=== PATIENT | male | born 1940 | race Caucasian/White ===

== ENCOUNTER 2021-12-01 17:41 | Inpatient (IN) | payer OTHER ==
[~2021-12-01] VITALS: Ht 177.8 cm; Wt 91.1 kg
[2021-12-01] MEDS ORDERED: ATOR20 PO (18:23)
[2021-12-01] MEDS ORDERED: Aspirin325 MG PO (18:23)
[2021-12-01 18:49] LABS: BASOPHILS ABSOLUTE AUTO 0.03 K/mm3 (0.00-0.23); BASOPHILS PERCENT AUTO 0 % (0-2); EOSINOPHILS PERCENT AUTO 0 % (0-6); Hemoglobin 14.3 g/dL (13.5-17.5); IMMATURE GRAN PERCENT AUTO 1 % (0-1); LYMPHOCYTES ABSOLUTE AUTO 0.65 K/mm3 (0.84-5.20); LYMPHOCYTES PERCENT AUTO 3 % (21-46); MONOCYTES ABSOLUTE AUTO 1.91 K/mm3 (0.16-1.47); MONOCYTES PERCENT AUTO 10 % (4-13); Mean Corpuscular HGB 31.1 pg (26.0-34.0); Mean Corpuscular HGB Conc 33.3 g/dL (31.5-36.5); Mean Corpuscular Volume 94 fL (80-100); NEUTROPHILS ABSOLUTE AUTO 16.84 K/mm3 (1.96-9.15); NEUTROPHILS PERCENT AUTO 86 % (41-73); Platelet Count 409 K/mm3 (150-400); RDW Coefficient Variation 13.1 % (11.7-14.2); RDW Standard Deviation 44.9 fL (35.1-46.3); White Blood Cell Count 19.63 K/mm3 (4.00-11.30)
[2021-12-01 19:04] LABS: Albumin, Blood 3.1 g/dL (3.4-5.0); Albumin/Globulin Ratio 0.6 (0.8-1.8); Bilirubin, Total 1.1 mg/dL (0.1-1.0); Bun/Creatinine Ratio 23.3 (12.0-20.0); Calcium, Blood 8.9 mg/dL (8.5-10.1); Creatinine, Blood 1.46 mg/dL (0.60-1.20); Globulin, Blood 5.2 g/dL (2.2-4.0); Potassium, Blood 4.1 mmol/L (3.5-5.5); Total Protein, Blood 8.3 g/dL (6.4-8.2)
[2021-12-01 19:05] LABS: Influenza A, PCR NEGATIVE (NEGATIVE); Influenza B, PCR NEGATIVE (NEGATIVE); Resp Syncytial Virus, PCR NEGATIVE (NEGATIVE)
[2021-12-01 19:16] LABS: SARS-Cov-2 (COVID-19) PCR, MMC POSITIVE (NEGATIVE)
[2021-12-01] MEDS ORDERED: C COMPLEX1000 M1 PO (21:44)
--- NOTE | 2021-12-02 02:00 | NUR ---
TALKED TO PT'S WILMAR. WILMAR GRISSOM THAT SHE HAS NOTICED PT'S MENTAL STATUS DECLINING. PT IS FULL CAREGIVER TO THAT HAS DEMENTIA AND IS WHEECHAIR BOUND. STS THAT SHE NOTICED HIM STUMBLING AND OFF BALANCE WHEN SHE ARRIVED TO PT'S HOME TO ASSIST HIM WITH MEDICAL NEED AND BROUGHT HIM TO ED. WILMAR GRISSOM SHE IS A AN EXPERIENCED CAREGIVER. PT'S BED ALARM IS ACTIVE TO PREVENT FALL. CALL LIGHT AND URINAL ARE WITHIN REACH.
[2021-12-02 04:06] LABS: BASOPHILS ABSOLUTE AUTO 0.03 K/mm3 (0.00-0.23); BASOPHILS PERCENT AUTO 0 % (0-2); EOSINOPHILS PERCENT AUTO 0 % (0-6); Hematocrit 36.7 % (37.0-53.0); Hemoglobin 12.2 g/dL (13.5-17.5); IMMATURE GRAN ABSOLUTE AUTO 0.16 K/mm3 (0.00-0.10); IMMATURE GRAN PERCENT AUTO 1 % (0-1); LYMPHOCYTES ABSOLUTE AUTO 0.72 K/mm3 (0.84-5.20); LYMPHOCYTES PERCENT AUTO 5 % (21-46); MONOCYTES ABSOLUTE AUTO 1.61 K/mm3 (0.16-1.47); MONOCYTES PERCENT AUTO 11 % (4-13); Mean Corpuscular HGB 31.9 pg (26.0-34.0); Mean Corpuscular HGB Conc 33.2 g/dL (31.5-36.5); Mean Corpuscular Volume 96 fL (80-100); Mean Platelet Volume 10.4 fL (9.1-12.4); NEUTROPHILS ABSOLUTE AUTO 12.76 K/mm3 (1.96-9.15); NEUTROPHILS PERCENT AUTO 84 % (41-73); Platelet Count 294 K/mm3 (150-400); RDW Coefficient Variation 13.1 % (11.7-14.2); RDW Standard Deviation 46.2 fL (35.1-46.3); Red Blood Cell Count 3.82 M/mm3 (4.30-5.90); White Blood Cell Count 15.28 K/mm3 (4.00-11.30)
[2021-12-02 04:29] LABS: Bun/Creatinine Ratio 26.5 (12.0-20.0); Calcium, Blood 8.2 mg/dL (8.5-10.1); Creatinine, Blood 1.32 mg/dL (0.60-1.20); Potassium, Blood 4.4 mmol/L (3.5-5.5)
--- NOTE | 2021-12-02 06:43 | NUR ---
SHIFT SUMMARY PT IS ALERT AND ORIENTED. PT IS [place] AND HEARING AIDS ARE AT BEDSIDE. DENIES CHEST PAIN. REPORTS SOB ON EXERTION. VITAL SIGNS ARE STABLE. PT'S OXYGEN DEMAND HAS INCREASED. PT DESATED INTO LOW 70'S AND MAINTAINED <85%. RT WAS CALLED AND PT IS NOW ON HEATED HI FLOW NC 40L 70 FIO2. 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 BED ALARM IS ACTIVE AND CALL LIGHT IS WITHIN REACH.
--- NOTE | 2021-12-02 07:10 | NUR ---
CALLED DR Donte SCHAFFER TO CHANGE CODE STATUS ON PT. HAD A TALK WITH PT ABOUT HIS CODE STATUS AND WHAT IT MEANT. PT REPORTS THAT HE WOULD LIKE CHEST COMPRESSIONS AND MEDS BUT DOES NOT WANT TO BE INTUBATED.
--- NOTE | 2021-12-02 08:44 | NUR ---
AM NOTED PT DESATURATED DOWN TO 85% ON AIRVO 40L 71% FIO2; PT HAD PULLED NASAL PRONGS OUT OF NOSE AND JUST SITTING ON HIS UPPER LIP. REPLACED IN NOSE, PT RECOVERED SLOWING, CURRENT 90-93% SPO2. TACHYPNIC 24-32 RESP PER MIN, USE OF ABD MUSCLE, IMPROVED WHEN O2 REPLACED. PT ALERT, ORIENTED PERSON, PLACE, EVENT, TIME; UNSURE OF EXACT DATE, STATES IT IS SUPER BOWL THURSDAY, KNOWNS IT IS 2021. REORIENTED EASILY. [place]. PT REPORTS OVERALL ACHE, REPOSITIONED FOR COMFORT, PT IND IN ROOM. PT DENIES NAUSEA CURRENTLY, REPORTS HE BECOMES NAUSIOUS AT BASELINE WITH MEALS. PT DENIES DIZZINESS. TELE SINUS 60-70'S, BP STABLE. ABD SOFT, NONTENDER, HYPOACTIVE BT T/O. PT RECIVING IV STEROIDS. LOW GRADE FEVER 100.3. OTHER VSS. NO OTHER ACUTE CHANGES NOTED. WILL CONTINUE TO MONITOR.
--- NOTE | 2021-12-02 17:00 | NUR ---
SHIFT SUMMARY PT DESATURATED WITH ACTIVITY, RECOVERS, TITRATED AIRVO DOWN TO 40L 65% FIO2, TOLERATING WELL. UP IN CHAIR FOR MAJOIRTY OF SHIFT. NO S/SX OF DISTRESS NOTED. OTHER VSS. NO OTHER ACUTE CHANGES NOTED. WILL CONTINUE TO MONITOR UNITL REPORT GIVEN TO ONCOMING RN.
[2021-12-03 04:11] LABS: BASOPHILS ABSOLUTE AUTO 0.03 K/mm3 (0.00-0.23); BASOPHILS PERCENT AUTO 0 % (0-2); EOSINOPHILS PERCENT AUTO 0 % (0-6); Hematocrit 34.5 % (37.0-53.0); Hemoglobin 11.6 g/dL (13.5-17.5); IMMATURE GRAN ABSOLUTE AUTO 0.38 K/mm3 (0.00-0.10); IMMATURE GRAN PERCENT AUTO 2 % (0-1); LYMPHOCYTES PERCENT AUTO 3 % (21-46); MONOCYTES ABSOLUTE AUTO 1.29 K/mm3 (0.16-1.47); MONOCYTES PERCENT AUTO 6 % (4-13); Mean Corpuscular HGB 31.7 pg (26.0-34.0); Mean Corpuscular HGB Conc 33.6 g/dL (31.5-36.5); Mean Corpuscular Volume 94 fL (80-100); Mean Platelet Volume 9.9 fL (9.1-12.4); NEUTROPHILS ABSOLUTE AUTO 17.75 K/mm3 (1.96-9.15); NEUTROPHILS PERCENT AUTO 89 % (41-73); Platelet Count 373 K/mm3 (150-400); RDW Standard Deviation 44.9 fL (35.1-46.3); Red Blood Cell Count 3.66 M/mm3 (4.30-5.90); White Blood Cell Count 20.05 K/mm3 (4.00-11.30)
[2021-12-03 04:27] LABS: Bun/Creatinine Ratio 32.5 (12.0-20.0); Calcium, Blood 8.4 mg/dL (8.5-10.1); Creatinine, Blood 1.23 mg/dL (0.60-1.20); Potassium, Blood 4.7 mmol/L (3.5-5.5)
--- NOTE | 2021-12-03 06:19 | NUR ---
SHIFT SUMMARY PT IS ALERT AND ORIENTED. VITALS ARE STABLE. THIS MORNING WHEN PT USED URINAL AND SAT AT SIDE OF BED HE DESATED TO THE LOW 80'S THIS NURSE WAS UNABLE TO GET SATS UP DESPITE INCREASING OXYGEN. RT WAS CALLED AND PT IS NOW ON 55L 80% FIO2 WOTH SATS OF 96%. CALL LIGHT IS WITHIN REACH.
--- NOTE | 2021-12-03 09:02 | NUR ---
AM NOTE ASSUMED CARE OF PATIENT AT APPROX 0700. PT SPO2 AT 98-99% ON 54L 77% FIO2 WHILE SLEEPING, RESP RATE 20-22; PT DESATURATED DOWN TO 86-90% WITH ACTIVITY, UNABLE TO TITRATES DOWN AT THIS TIME. PT REPORTS DRY COUGH, REPORTS CHEST PAIN WITH COUGH AT TIMES. PT A&Ox4; CALM AND COOPERATIVE WITH CARE. PT EXPRESSING THE DESIRE TO GO HOME, PT EDCUATED ON O2 NEEDS BEING TO HIGH TO GO HOME AT THIS TIME. PT DENIES PAIN, NASUEA AND DIZZZINESS. TELE SINUS AMY 40-50'S; BP STABLE. ABD SOFT, NONTENDER, LAST BN YESTERDAY; PT REPORTS DIARRHEA, HELD STOOL SOFTNERS THIS AM. NO S/SX OF DISTRESS NOTED. OTHER VSS. NO OTHER ACUTE CHANGES. WILL CONTINE TO MONTIOR.
--- NOTE | 2021-12-03 17:27 | NUR ---
SHIFT SUMMARY PT UP TO BSC AND WHILE TRANSFERING BACK TO BE PT DESATURATED TO 79-86%, TACHPNIC AND LABORED BREATHING NOTED; ON AIRVO 50L AND 71% FIO2, TITRATED UP TO 50L AND 81% FIO2 AND PLACED NONREBREATHER FOR RESCUE, SLOW RECOVERY; PT CURRENTLY SPO2 90-92% WHILE EATING DINNER. MINIMAL URINE OUTPUT NOTED. NO OTHER ACUTE CHANGES NOTED. OTHER VSS. WILL CONTINUE TO MONITOR
--- NOTE | 2021-12-04 05:44 | NUR ---
SHIFT SUMMARY PT ALERT AND ORIENTED. CONFUSED AT TIMES. BED ALARM IN PLACE. HR STABLE. BP STABLE. NO CP OR PRESSURE REPORTED. PT ABLE TO TURN SELF IN BED NEEDED. OXYGEN SATURATION MAINTAINED ABOVE 92% ON AIRVO,SEE EHR FOR SETTINGS. PT USES URINAL AT BEDSIDE. WILL CONT TO MONITOR UNTIL REPORT GIVE TO DAYSHIFT RN.
[2021-12-04 06:19] LABS: BASOPHILS ABSOLUTE AUTO 0.06 K/mm3 (0.00-0.23); BASOPHILS PERCENT AUTO 0 % (0-2); EOSINOPHILS PERCENT AUTO 0 % (0-6); Hematocrit 35.5 % (37.0-53.0); IMMATURE GRAN ABSOLUTE AUTO 0.52 K/mm3 (0.00-0.10); IMMATURE GRAN PERCENT AUTO 3 % (0-1); LYMPHOCYTES ABSOLUTE AUTO 0.67 K/mm3 (0.84-5.20); LYMPHOCYTES PERCENT AUTO 3 % (21-46); MONOCYTES PERCENT AUTO 7 % (4-13); Mean Corpuscular HGB 32.6 pg (26.0-34.0); Mean Corpuscular HGB Conc 33.8 g/dL (31.5-36.5); Mean Corpuscular Volume 97 fL (80-100); Mean Platelet Volume 10.5 fL (9.1-12.4); NEUTROPHILS ABSOLUTE AUTO 17.12 K/mm3 (1.96-9.15); NEUTROPHILS PERCENT AUTO 87 % (41-73); Platelet Count 364 K/mm3 (150-400); RDW Standard Deviation 46.1 fL (35.1-46.3); Red Blood Cell Count 3.68 M/mm3 (4.30-5.90); White Blood Cell Count 19.67 K/mm3 (4.00-11.30)
[2021-12-04 06:45] LABS: Calcium, Blood 8.5 mg/dL (8.5-10.1); Creatinine, Blood 1.19 mg/dL (0.60-1.20); Potassium, Blood 4.8 mmol/L (3.5-5.5)
--- NOTE | 2021-12-04 08:59 | NUR ---
AM NOTE ASSUMED CARE OF PATIENT AT APPROX 0700. PT ALERT, ORIENTED x4; PRAIRIE BAND AND FORGETFUL AT TIMES. PT REPORTS SOB; SPO2 >90% ON 50L 89% FIO2 VIA AIRVO THIS AM; LS DIM T/O, RESP RATE 20-24. PT REPORTS COUGHING UP SPUTUM, MOSTLY CLEAR WITH SLIGHT YELLOW SPUTUM NOTED. TELE SINUS AMY, BP STABLE. BOWEL TO NORMOACTIVE x4 QUAD, SOFT NONTENDER, REFUSING STOOL SOFTENERS AT THIS TIME. NO S/SX OF DISTRESS NOTED. OTHER VSS. NO OTHER ACUTE CHANGES NOTED. WILL CONTINUE TO MONITOR.
--- NOTE | 2021-12-04 15:16 | NUR ---
TRANSFER OF CARE NO S/SX OF DISTRESS NOTED. NO ACUTE CHAGNES NOTED T/O SHIFT. TITRATED AIRVO SETTING TO 50L AND 80% FIO2; SPO2 >90% FOR MAJORITY OF SHIFT. VSS. REPORT GIVEN TO RN ASSUMING CARE OF PATIENT.
--- NOTE | 2021-12-04 18:08 | NUR ---
TRANSFER OF CARE THIS RN CARING FOR PT SINCE APPROX 1500. PT A&O X4. VSS. SPO2 > 90% ON AIRVO @ 50L, FIO2 80%. MONITOR SHOWING SB, HR 40's-50's. NO EVENTS. WILL CONTINUE TO MONITOR & PROVIDE CARE UNTIL REPORT OFF TO MOLD FINISHER RN.
--- NOTE | 2021-12-04 23:11 | NUR ---
UPDATE INFORMED THAT SPUTUM SAMPLE WAS NOT OF ABLE TO BE PROCESSED BY LAB. DISCUSSED WITH RING MAKING MACHINE OPERATOR. NEW ORDER TO BE PLACED.
[2021-12-05 04:16] LABS: BASOPHILS ABSOLUTE AUTO 0.08 K/mm3 (0.00-0.23); BASOPHILS PERCENT AUTO 1 % (0-2); EOSINOPHILS ABSOLUTE AUTO 0.01 K/mm3 (0.00-0.68); EOSINOPHILS PERCENT AUTO 0 % (0-6); Hematocrit 36.5 % (37.0-53.0); Hemoglobin 12.2 g/dL (13.5-17.5); IMMATURE GRAN ABSOLUTE AUTO 0.73 K/mm3 (0.00-0.10); IMMATURE GRAN PERCENT AUTO 4 % (0-1); LYMPHOCYTES ABSOLUTE AUTO 0.71 K/mm3 (0.84-5.20); LYMPHOCYTES PERCENT AUTO 4 % (21-46); MONOCYTES ABSOLUTE AUTO 1.15 K/mm3 (0.16-1.47); MONOCYTES PERCENT AUTO 7 % (4-13); Mean Corpuscular HGB 32.6 pg (26.0-34.0); Mean Corpuscular HGB Conc 33.4 g/dL (31.5-36.5); Mean Corpuscular Volume 98 fL (80-100); Mean Platelet Volume 10.6 fL (9.1-12.4); NEUTROPHILS ABSOLUTE AUTO 14.38 K/mm3 (1.96-9.15); NEUTROPHILS PERCENT AUTO 84 % (41-73); Platelet Count 389 K/mm3 (150-400); RDW Coefficient Variation 12.9 % (11.7-14.2); RDW Standard Deviation 45.2 fL (35.1-46.3); Red Blood Cell Count 3.74 M/mm3 (4.30-5.90); White Blood Cell Count 17.06 K/mm3 (4.00-11.30)
--- NOTE | 2021-12-05 05:30 | NUR ---
SHIFT SUMMARY PT ALERT AND ORIENTED. SLEPT T/O SHIFT. HR STABLE. BP STABLE. NO CP OR PRESSURE. BED ALARM IN PLACE FOR OCCASIONAL FORGETFULNESS. PT ABLE TO TURN SELF IN BED NEEDED. OXYGEN SATURATION MAINTAINED ABOVE 92% ON AIRVO AT 50L AND 80% FIO2. PT ENCOURAGED TO PRONE. WILL CONT TO MONITOR UNTIL REPORT GIVEN TO DAYSHIFT RN.
--- NOTE | 2021-12-05 18:35 | NUR ---
Pt remains A&O x4. No c/o pain. Afebrile. AUO. No BM. Tolerating current diet. Unable to wean supplemental O2- continues to desat with movement, Tessalon pearls PRN significantly helped with cough suppression. Frequent rounds to ensure pt safety. Pt encouraged to reposition q2hrs and pressure points offloaded to prevent pressure ulcers, pt verbalized understanding. Pt in no apparent distress at this time. Will continue to monitor until transfer of care to oncoming RN.
[2021-12-06 04:03] LABS: Hematocrit 38.6 % (37.0-53.0); Hemoglobin 12.8 g/dL (13.5-17.5); Mean Corpuscular HGB Conc 33.2 g/dL (31.5-36.5); Mean Corpuscular Volume 97 fL (80-100); Mean Platelet Volume 9.8 fL (9.1-12.4); Platelet Count 447 K/mm3 (150-400); RDW Coefficient Variation 12.6 % (11.7-14.2); RDW Standard Deviation 43.9 fL (35.1-46.3); White Blood Cell Count 15.03 K/mm3 (4.00-11.30)
[2021-12-06 04:18] LABS: Bun/Creatinine Ratio 28.2 (12.0-20.0); Calcium, Blood 8.4 mg/dL (8.5-10.1); Creatinine, Blood 1.17 mg/dL (0.60-1.20); Potassium, Blood 4.3 mmol/L (3.5-5.5)
--- NOTE | 2021-12-06 05:12 | NUR ---
UPDATE PT GAVE VERBAL OK TO SPEAK WITH SISTER MIMI. MIMI UPDATED ON PT CONDITION. MIMI STATED PT'S IS NOT DOING WELL AND IS AT END OF LIFE. PT MAY NEED CITY ROUTE DRIVER ASSISTANCE, WILL INFORM DAYSHIFT RN. LE TO CALL THIS AFTERNOON WITH UPDATE ON PT'S .
[2021-12-06 05:37] LABS: BAND PERCENT MAN 3 % (0-8); BASOPHILS PERCENT MAN 0 % (0-2); EOSINOPHILS ABSOLUTE MAN 0.15 K/mm3 (0.00-0.68); EOSINOPHILS PERCENT MAN 1 % (0-6); LYMPHOCYTES ABSOLUTE MAN 1.05 K/mm3 (0.84-5.20); LYMPHOCYTES PERCENT MAN 7 % (21-46); MONOCYTES ABSOLUTE MAN 0.75 K/mm3 (0.16-1.47); MONOCYTES PERCENT MAN 5 % (4-13); NEUTROPHILS ABSOLUTE MAN 13.07 K/mm3 (1.96-9.15); SEG NEUTROPHILS PERCENT MAN 84 % (41-73); TOTAL CELLS COUNTED 100
--- NOTE | 2021-12-06 05:45 | NUR ---
ASSESSMENT COMPLETED, VITAL SIGNS STABLE. PT AWAKE , ALERT AND ORIENTED X4. PT DENIES PAIN.AT THE BEGININGB OF THE SHIFT PT 40L OXYGEN 80% FIO2 , RT ATTEMPTED TITRATING O2 DOWN PT HAD A COUGHING FIT AND DESATS TO 80"S , PT CURRENTLY ON 60L 90%FIO2 SPO2 97%. DISCUSSED PLAN OF CARE WITH PATIENT, GOAL IS TITRATED OXYGEN TOLERATED. PATIENT VERBALIZED UNDERSTANDING . CALL LIGHT WITHIN REACH AND SIDE RAIL UP X2.
--- NOTE | 2021-12-06 11:08 | NUR ---
Update: Run of [facility], pt asymptomatic. MD notified via voicemail.
[2021-12-06 12:45] LABS: PCO2 Arterial 35.5 mmHg (35-45); PO2 Arterial 98.5 mmHg (80-100); pH Blood Arterial 7.46 (7.35-7.45)
[2021-12-07 03:43] LABS: Hematocrit 36.8 % (37.0-53.0); Hemoglobin 12.2 g/dL (13.5-17.5); Mean Corpuscular HGB 31.9 pg (26.0-34.0); Mean Corpuscular HGB Conc 33.2 g/dL (31.5-36.5); Mean Corpuscular Volume 96 fL (80-100); Mean Platelet Volume 10.3 fL (9.1-12.4); Platelet Count 403 K/mm3 (150-400); RDW Coefficient Variation 12.6 % (11.7-14.2); RDW Standard Deviation 43.9 fL (35.1-46.3); Red Blood Cell Count 3.82 M/mm3 (4.30-5.90); White Blood Cell Count 16.94 K/mm3 (4.00-11.30)
[2021-12-07 04:03] LABS: Anion Gap 4 mmol/L (6-16); Blood Urea Nitrogen 32 mg/dL (8-24); Bun/Creatinine Ratio 29.4 (12.0-20.0); CO2, Blood 24 mmol/L (21-32); Calcium, Blood 8.3 mg/dL (8.5-10.1); Chloride, Blood 112 mmol/L (98-108); Creatinine, Blood 1.09 mg/dL (0.60-1.20); Glomerular Filtration Rate >60 (60-); Glucose, Blood 131 mg/dL (70-99); Potassium, Blood 4.5 mmol/L (3.5-5.5); Sodium, Blood 140 mmol/L (136-145)
[2021-12-07 04:07] LABS: BAND PERCENT MAN 2 % (0-8); BASOPHILS PERCENT MAN 0 % (0-2); EOSINOPHILS ABSOLUTE MAN 0.16 K/mm3 (0.00-0.68); EOSINOPHILS PERCENT MAN 1 % (0-6); LYMPHOCYTES ABSOLUTE MAN 0.84 K/mm3 (0.84-5.20); LYMPHOCYTES PERCENT MAN 5 % (21-46); METAMYELOCYTE ABSOLUTE MAN 0.67 K/mm3 (0.00-0.00); METAMYELOCYTE PERCENT MAN 4 % (0-0); MONOCYTES ABSOLUTE MAN 1.01 K/mm3 (0.16-1.47); MONOCYTES PERCENT MAN 6 % (4-13); MYELOCYTE PERCENT MAN 3 % (0-0); NEUTROPHILS ABSOLUTE MAN 13.72 K/mm3 (1.96-9.15); SEG NEUTROPHILS PERCENT MAN 79 % (41-73); TOTAL CELLS COUNTED 100
--- NOTE | 2021-12-07 05:33 | NUR ---
CEMENT STORAGE WORKER SUMMARY NOTE ALERT AND ORIENTEED X4 , VSS, PT CURRENTLY ON 40L 60% FIO2 SATS 94%, THIS NURSE DISCUSSED PLAN OF CARE WITH PATIENT WILL WEAN SUPPLEMENTAL O2 TOLERATED , PT VERBALIZED UNDERSTANDING. PT DENIES PAIN AT THIS TIME. CALL LIGHT WITHIN REACH AND SIDE RAIL UP X3.
--- NOTE | 2021-12-07 18:29 | NUR ---
VSS. No c/o pain. Afebrile. AUO. No BM- refusing bowel regimen meds despite education. Tolerating current diet. Weaned HFNC settings down. Encouraged pt to prone, per pt "I will try to when I go to sleep tonight." Sister updated regarding POC. Frequent rounds to ensure pt safety. Pt encouraged to reposition q2hrs and offloade pressure points to prevent pressure ulcers, pt verbalized understanding. Pt in no apparent distress at this time. Will continue to monitor until transfer of care to oncoming RN.
[2021-12-08 03:31] LABS: Hematocrit 37.1 % (37.0-53.0); Hemoglobin 12.2 g/dL (13.5-17.5); Mean Corpuscular HGB 31.2 pg (26.0-34.0); Mean Corpuscular HGB Conc 32.9 g/dL (31.5-36.5); Mean Corpuscular Volume 95 fL (80-100); Mean Platelet Volume 10.1 fL (9.1-12.4); Platelet Count 446 K/mm3 (150-400); RDW Coefficient Variation 12.5 % (11.7-14.2); RDW Standard Deviation 43.5 fL (35.1-46.3); Red Blood Cell Count 3.91 M/mm3 (4.30-5.90); White Blood Cell Count 21.11 K/mm3 (4.00-11.30)
[2021-12-08 03:46] LABS: Anion Gap 6 mmol/L (6-16); Blood Urea Nitrogen 31 mg/dL (8-24); Bun/Creatinine Ratio 29.2 (12.0-20.0); CO2, Blood 24 mmol/L (21-32); Calcium, Blood 8.6 mg/dL (8.5-10.1); Chloride, Blood 112 mmol/L (98-108); Creatinine, Blood 1.06 mg/dL (0.60-1.20); Glomerular Filtration Rate >60 (60-); Glucose, Blood 135 mg/dL (70-99); Potassium, Blood 4.7 mmol/L (3.5-5.5); Sodium, Blood 142 mmol/L (136-145)
[2021-12-08 03:59] LABS: BAND PERCENT MAN 5 % (0-8); BASOPHILS PERCENT MAN 0 % (0-2); EOSINOPHILS ABSOLUTE MAN 0.21 K/mm3 (0.00-0.68); EOSINOPHILS PERCENT MAN 1 % (0-6); LYMPHOCYTES ABSOLUTE MAN 0.84 K/mm3 (0.84-5.20); LYMPHOCYTES PERCENT MAN 4 % (21-46); METAMYELOCYTE ABSOLUTE MAN 0.21 K/mm3 (0.00-0.00); METAMYELOCYTE PERCENT MAN 1 % (0-0); MONOCYTES ABSOLUTE MAN 0.84 K/mm3 (0.16-1.47); MONOCYTES PERCENT MAN 4 % (4-13); MYELOCYTE ABSOLUTE MAN 0.42 K/mm3 (0.00-0.00); MYELOCYTE PERCENT MAN 2 % (0-0); NEUTROPHILS ABSOLUTE MAN 18.57 K/mm3 (1.96-9.15); SEG NEUTROPHILS PERCENT MAN 83 % (41-73); TOTAL CELLS COUNTED 100
--- NOTE | 2021-12-08 06:26 | NUR ---
ALERT AND ORIENTED X4. OVERNIGHT PT DESATs 80"s ON AIRVO DUE TO COUGHING FIT, OXYGEN INCREASED FROM 35L TO 50L 85% Fio2 SPO2 90"S , RT NOTIFIED. RT LATER ON WEAN O2 DOWN TO 35L54% Fio2 tolerating well. PLAN OF CARE DISCUSSED WITH PATIENT , PT VERBALIZED UNDERSTANDING. CALL LIGHT WITHIN REACH , SIDE RAIL UP X2.
--- NOTE | 2021-12-08 16:43 | NUR ---
SHIFT SUMMARY NO S/SX OF DISTRESS NOTED. PT CONTINUES ON AIRVO TITRATED DOWN TO 35L 51% FIO2. PT ABLE TO BOOST SELF IN BED. OTHER VSS. NO OTHER ACUTE CHANGES NOTED. WILL CONTINUE TO MONITOR UNITL REPORT GIVEN TO ONCOMING RN.
--- NOTE | 2021-12-08 22:29 | NUR ---
CARE ASSUMPTION PT IS AXO X4 AND COMMUNICATING APPROPRIATLEY. O2 SATS >90% ON 35L W 40% FIO2. PT DENYING ANY PAIN OR NAUSEA AT THIS TIME. VSS AND AFEBRILE. PT DENYING ANY FURTHER NEEDS AT THIS TIME.
[2021-12-09 04:09] LABS: Hematocrit 37.8 % (37.0-53.0); Hemoglobin 12.7 g/dL (13.5-17.5); Mean Corpuscular HGB 31.8 pg (26.0-34.0); Mean Corpuscular HGB Conc 33.6 g/dL (31.5-36.5); Mean Corpuscular Volume 95 fL (80-100); Mean Platelet Volume 10.5 fL (9.1-12.4); Platelet Count 486 K/mm3 (150-400); RDW Coefficient Variation 12.4 % (11.7-14.2); Red Blood Cell Count 3.99 M/mm3 (4.30-5.90); White Blood Cell Count 18.27 K/mm3 (4.00-11.30)
[2021-12-09 04:45] LABS: BAND PERCENT MAN 3 % (0-8); BASOPHILS PERCENT MAN 0 % (0-2); EOSINOPHILS PERCENT MAN 0 % (0-6); LYMPHOCYTES ABSOLUTE MAN 1.46 K/mm3 (0.84-5.20); LYMPHOCYTES PERCENT MAN 8 % (21-46); MONOCYTES ABSOLUTE MAN 0.73 K/mm3 (0.16-1.47); MONOCYTES PERCENT MAN 4 % (4-13); MYELOCYTE ABSOLUTE MAN 0.18 K/mm3 (0.00-0.00); MYELOCYTE PERCENT MAN 1 % (0-0); NEUTROPHILS ABSOLUTE MAN 15.89 K/mm3 (1.96-9.15); SEG NEUTROPHILS PERCENT MAN 84 % (41-73); TOTAL CELLS COUNTED 100
--- NOTE | 2021-12-09 06:43 | NUR ---
SINGLE STAYER OPERATOR SUMMARY PT IS AXO X4 AND COMMUNICATES APPROPRIATLEY. NO MAJOR CHANGES THIS SHIFT THE PT SLEPT COMFORTABLY FOR MOST OF THE NIGHT. O2 SATS >90% ON AIRVO 35L W 40% FIO2. VSS AND AFEBRILE. PT DID HAVE ONE EPISODE OF A 43 BEAT RUN OF IDIOVENTRICULAR RYTHYM WHILE ASLEEP. WILL REPORT TO ONCOMING RN.
--- NOTE | 2021-12-09 08:27 | NUR ---
ASSUMED CARE OF PATIENT AT APPROX 0700. PT RESTING IN BED. MOVES IND IN BED. PT REPORTS SOB, SPO2 >90% THIS AM ON 31L 35% FIO2; LS DIMINISHED T/O, PT REPROTS CHEST PAIN WITH COUGH, DENIES SPUTUM PRODUCTION. RESP RATE 20-26. PT DENIES PAIN, NAUSEA, DIZZINESS AND LIGHTHEADEDNESS. PT TELE SINUSBRADY 50S, BP STABLE. BT ACTIVE T/O, SOFT NONTENDER, PT REPORTS DIARRHEA, REFUSING STOOL SOFTENERS. BRUISING NOTED ALONG LOWER ABD. OTHER VSS. NO S/SX OF DISTRESS NOTED. NO OTHER ACUTE CHAGNES. WILL CONTINUE TO MONITOR.
--- NOTE | 2021-12-09 14:33 | NUR ---
Case conference with propellant charge loader and bedside RN on current status and concerns. Will await further update this afternoon from RN before making contact per her request. Pt's at home on hospice currently. Pt's O2 and resp support needs currently too great for him to return home to be with her. Customer Services Manager updated also.
--- NOTE | 2021-12-09 16:42 | NUR ---
Spiritual care visit conducted. Patient is lying in bed and alert. 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 Patient talks about the things that inspire him, the granddaughter that he trusts and the need to be well quickly. Pt is tearful at times and is very honest. Therapeutic alliance is easily established. I listen empathically, and provide gentle savings counselor, and prayer. Patient responds well, shows signs of reduced stress and asks if I could return next day to visit. I will continue to help pt deal with the load and stress.
--- NOTE | 2021-12-09 17:58 | NUR ---
SHIFT SUMMARY NO S/SX OF DISTRESS NOTED T/O SHIFT. TITRATED PT FROM AIRVO TO 4L O2 VIA NC T/O SHIFT. OTHER VSS. NO OTHER ACUTE CHANGES NOTED. WILL CONTINUE TO MONITOR UNITL REPORT GIVEN TO ONCOMING RN.
--- NOTE | 2021-12-09 21:39 | NUR ---
CARE ASSUMPTION PT IS AXO X4 AND COMMUNICATING APPROPRIATELY. O2 SATS >90% ON 3L NC. VSS AND AFEBRILE. PT DENYING ANY PAIN OR NAUSEA AT THIS TIME. PT RESTING IN BED DENYING ANY FURTHER NEEDS AT THIS TIME.
[2021-12-10 04:01] LABS: Hemoglobin 13.2 g/dL (13.5-17.5); Mean Corpuscular HGB 31.7 pg (26.0-34.0); Mean Corpuscular HGB Conc 33.8 g/dL (31.5-36.5); Mean Corpuscular Volume 94 fL (80-100); Mean Platelet Volume 10.3 fL (9.1-12.4); Platelet Count 500 K/mm3 (150-400); RDW Coefficient Variation 12.2 % (11.7-14.2); RDW Standard Deviation 42.6 fL (35.1-46.3); Red Blood Cell Count 4.16 M/mm3 (4.30-5.90); White Blood Cell Count 15.32 K/mm3 (4.00-11.30)
[2021-12-10 04:26] LABS: Anion Gap 5 mmol/L (6-16); Blood Urea Nitrogen 31 mg/dL (8-24); Bun/Creatinine Ratio 28.7 (12.0-20.0); CO2, Blood 27 mmol/L (21-32); Calcium, Blood 8.4 mg/dL (8.5-10.1); Chloride, Blood 107 mmol/L (98-108); Creatinine, Blood 1.08 mg/dL (0.60-1.20); Glomerular Filtration Rate >60 (60-); Glucose, Blood 106 mg/dL (70-99); Potassium, Blood 4.5 mmol/L (3.5-5.5); Sodium, Blood 139 mmol/L (136-145)
[2021-12-10 04:36] LABS: BASOPHILS PERCENT MAN 0 % (0-2); EOSINOPHILS ABSOLUTE MAN 0.15 K/mm3 (0.00-0.68); EOSINOPHILS PERCENT MAN 1 % (0-6); LYMPHOCYTES ABSOLUTE MAN 0.91 K/mm3 (0.84-5.20); LYMPHOCYTES PERCENT MAN 6 % (21-46); METAMYELOCYTE PERCENT MAN 2 % (0-0); MONOCYTES ABSOLUTE MAN 1.22 K/mm3 (0.16-1.47); MONOCYTES PERCENT MAN 8 % (4-13); MYELOCYTE ABSOLUTE MAN 0.45 K/mm3 (0.00-0.00); MYELOCYTE PERCENT MAN 3 % (0-0); NEUTROPHILS ABSOLUTE MAN 12.25 K/mm3 (1.96-9.15); SEG NEUTROPHILS PERCENT MAN 80 % (41-73); TOTAL CELLS COUNTED 100
--- NOTE | 2021-12-10 04:59 | NUR ---
OTR REFRIGERATED CDL TRUCK DRIVER SUMMARY PT IS AXO X4 AND COMMUNICATES APPROPRIATELY. NO MAJOR EVENTS THIS SHIFT THE PT RESTED COMFORTABLY FOR MOST OF THE SHIFT. O2 SATS >90% ON 1-2L NC EXCEPT FOR A COUPLE OF COUGHING FITS THAT CAUSED HIS O2 TO DROP TO 83% WHICH SLOWLY RECOVERED W NO ADDITIONAL O2. VSS AND AFEBRILE. WILL REPORT TO ONCOMING RN.
--- NOTE | 2021-12-10 09:55 | NUR ---
ASSUMED CARE OF PATIENT AT APPROX 0700. PT ON 2L O2 VIA NC, PT HAD COUGHING EPISODE THIS AM AND TITRATED TO 5L O2 VIA NC, SPO2 89-92%; LUNG SOUNDS DIM T/O. NONPRODUCTIVE COUGH NOTED. RT AT BEDSIDE TO COMPLETE HOME O2 EVAL. PT A&Ox4; CALM AND COOPERATIVE WITH CARE. PT DENIES CHEST PAIN, PAIN, NAUSEA, DIZZINESS AND NUMB/TINGLING. TELE SINUS 50-60'S; BP SOFT, BUT STABLE. BT HYPOACTIVE, REPORTS PASSING GAS AND DIARRHEA, SOFT, NONTENDER. PT RECEIVING IV STEROIDS. VSS. NO OTHER ACUTE CHANGES NOTED. WILL CONTINUE TO MONITOR.
--- NOTE | 2021-12-10 11:32 | NUR ---
Case conference with [facility] Care Tugger Operator visiting pt and pt's RN this am. Pt's O2 needs have decreased and he is on nasal canula. He is still desaturating significantly with coughing spells and required 16 L to recover per RN. When I stopped by to visit, RT working with pt on Home O2 eval. Will try again later. Primary goal is for pt to improve enough that safe home going possible so that he can spend as much time as possible with his , who is on hospice at home.
[2021-12-10] MEDS ORDERED: BENZ100A PO (14:17)
[2021-12-10] MEDS ORDERED: DECADRON6 M1 PO (14:18)
[2021-12-10] MEDS ORDERED: OMEP20ER PO (14:18)
--- NOTE | 2021-12-10 19:14 | NUR ---
DISCHARGE SUMMARY PT AND FAMILY ARE ADAMANT ABOUT PT BEING DISCHARGED TODAY. PT ON 4L 02 VIA NC AT REST, SPO2 >90%, TIRATED TO 10-15 WITH ACTIVTY, THIS AFTERNOON SPO2 >88% WITH ACTIVITY. NO S/SX OF DISTRESS NOTED. NO OTHER ACUTE CHANGES. EDUCATED PT AND GRANDDAUGHTER ON DISCHARGE INSTRUCTIONS, FOLLOW UP APPOINTMENT AND MEDICATIONS. EDUCATED PT AND GRANDDAUGHTER WILMAR ON HOME O2 USE AND TITRATING THE OXYGEN FOR ACTIVITY. EDUCATED PT AND GRANDDAUGHTER ON SMALL AMOUNTS OF ACTIVITY AT A TIME, ALLOWING TIME TO RECOVER IN BETWEEN ACTIVITY. EDCUATED PT/GRANDDAUGHTER IF THE PT IS HAVING WORSENING SYMPTOMS, REOCCURING OR NEW SYMPTOMS TO COME BACK TO BE EVALUATED. PT LEFT ROOM VIA WHEEL CHAIR AT APPROX 1905.
== END 2021-12-10 18:56 | disposition home or self-care (01) | DRG 871 ==
LOC: ER 17:41 → ERHOLD 20:14 → PCU 20:14
PROVIDERS: Family Medicine; Physician Assistant; Student in an Organized Health Care Education/Training Program; ADMIT Hospitalist
PROC: 8E0ZXY6 Isolation (ICD-10-PCS; principal; 2021-12-01)
PROC: 3E0333Z Introduction of Anti-inflammatory into Peripheral Vein, Percutaneous Approach (ICD-10-PCS; 2021-12-01)
PROC: XW0DXM6 Introduction of Baricitinib into Mouth and Pharynx, External Approach, New Technology Group 6 (ICD-10-PCS; 2021-12-01)
PROC: 5A0955A Assistance with Respiratory Ventilation, Greater than 96 Consecutive Hours, High Flow/Velocity Cannula (ICD-10-PCS; 2021-12-02)
DX: A41.89 Other specified sepsis (principal); U07.1 COVID-19; J12.82 Pneumonia due to coronavirus disease 2019; J96.01 Acute respiratory failure with hypoxia; I47.1 Supraventricular tachycardia; N17.9 Acute kidney failure, unspecified; R65.20 Severe sepsis without septic shock; I10 Essential (primary) hypertension; E78.5 Hyperlipidemia, unspecified; F17.210 Nicotine dependence, cigarettes, uncomplicated; Z79.82 Long term (current) use of aspirin; Z79.899 Other long term (current) drug therapy
CPT/HCPCS: 0241U; 36415; 36600; 71045; 80048; 80053; 82803; 83605; 83735; 83880; 84145; 84484; 85025; 87040; 93005; 93010; 94761; 94762; 96374; 99285-25; A9270; C9399; J0153; J1100; J1650; J7030

== ENCOUNTER 2024-06-13 13:06 | Observation (INO) | payer OTHER ==
[~2024-06-13] VITALS: Ht 177.8 cm; Wt 94.9 kg
[~2024-06-13 13:06] MED LIST: ATOR20 PO; Aspirin325 MG PO; BENZ100A PO; C COMPLEX1000 M1 PO; DECADRON6 M1 PO; OMEP20ER PO
[2024-06-13] MEDS ORDERED: NS 1,000 ML IV SCH ×2 (13:25→16:10)
[2024-06-13] MEDS ORDERED: Metoprolol Tartrate 1 MG/ML 5 ML VIAL IV ONE (13:35)
[2024-06-13 13:39] LABS: BASOPHILS ABSOLUTE AUTO 0.02 K/mm3 (0.00-0.23); BASOPHILS PERCENT AUTO 0 % (0-2); EOSINOPHILS ABSOLUTE AUTO 0.31 K/mm3 (0.00-0.68); EOSINOPHILS PERCENT AUTO 2 % (0-6); Hematocrit 37.5 % (37.0-53.0); Hemoglobin 12.4 g/dL (13.5-17.5); IMMATURE GRAN ABSOLUTE AUTO 0.06 K/mm3 (0.00-0.10); IMMATURE GRAN PERCENT AUTO 1 % (0-1); LYMPHOCYTES ABSOLUTE AUTO 0.94 K/mm3 (0.84-5.20); LYMPHOCYTES PERCENT AUTO 7 % (21-46); MONOCYTES ABSOLUTE AUTO 2.17 K/mm3 (0.16-1.47); MONOCYTES PERCENT AUTO 17 % (4-13); Mean Corpuscular HGB 31.9 pg (26.0-34.0); Mean Corpuscular HGB Conc 33.1 g/dL (31.5-36.5); Mean Corpuscular Volume 96 fL (80-100); Mean Platelet Volume 9.9 fL (9.1-12.4); NEUTROPHILS ABSOLUTE AUTO 9.65 K/mm3 (1.96-9.15); NEUTROPHILS PERCENT AUTO 73 % (41-73); Platelet Count 225 K/mm3 (150-400); RDW Coefficient Variation 13.6 % (11.7-14.2); RDW Standard Deviation 47.8 fL (35.1-46.3); Red Blood Cell Count 3.89 M/mm3 (4.30-5.90); White Blood Cell Count 13.15 K/mm3 (4.00-11.30)
[2024-06-13 13:54] LABS: Albumin, Blood 2.9 g/dL (3.4-5.0); Albumin/Globulin Ratio 0.7 (0.8-1.8); Bilirubin, Total 1.1 mg/dL (0.1-1.0); Bun/Creatinine Ratio 17.2 (12.0-20.0); Calcium, Blood 8.3 mg/dL (8.5-10.1); Creatinine, Blood 1.22 mg/dL (0.60-1.20); Globulin, Blood 4.2 g/dL (2.2-4.0); Magnesium, Blood 2.1 mg/dL (1.6-2.4); Total Protein, Blood 7.1 g/dL (6.4-8.2)
[2024-06-13] MEDS ORDERED: Diltiazem HCl 5 MG / ML 5ML Vial IV ONE (14:30)
[2024-06-13 18:18] LABS: Anti-Xa UFH, PHA Monitoring <0.10 IU/mL; International Normalized Ratio 1.12; Prothrombin Time Results 11.9 Sec (9.7-11.5)
[2024-06-13 18:35] VITALS: BP 132/94
[2024-06-13] MEDS ORDERED: Heparin Sodium,Porcine/0.5 NS 500 ML IV SCH (18:40)
[2024-06-13] MEDS ORDERED: Heparin Sodium 5000 Units/ML 1ML MDV IV ONE (18:40)
[2024-06-13] MEDS ORDERED: Dose Adjust by Pharmacy XX STA (18:41)
[2024-06-13 21:20] VITALS: BP 107/85
--- NOTE | 2024-06-13 23:05 | NUR ---
PT CONVERTED FROM A.FIB TO SINUS RHYTHM RATE OF 62 @2252. DR. GARZA CALLED AND INFORMED OF CHANGE. AMIODARONE DRIP STOPPED AT THIS TIME.
[2024-06-14 00:42] VITALS: BP 96/61
[2024-06-14 02:11] LABS: BASOPHILS ABSOLUTE AUTO 0.04 K/mm3 (0.00-0.23); BASOPHILS PERCENT AUTO 0 % (0-2); EOSINOPHILS PERCENT AUTO 6 % (0-6); Hematocrit 34.6 % (37.0-53.0); Hemoglobin 11.3 g/dL (13.5-17.5); IMMATURE GRAN ABSOLUTE AUTO 0.09 K/mm3 (0.00-0.10); IMMATURE GRAN PERCENT AUTO 1 % (0-1); LYMPHOCYTES ABSOLUTE AUTO 1.15 K/mm3 (0.84-5.20); LYMPHOCYTES PERCENT AUTO 12 % (21-46); MONOCYTES ABSOLUTE AUTO 1.52 K/mm3 (0.16-1.47); MONOCYTES PERCENT AUTO 16 % (4-13); Mean Corpuscular HGB 31.4 pg (26.0-34.0); Mean Corpuscular HGB Conc 32.7 g/dL (31.5-36.5); Mean Corpuscular Volume 96 fL (80-100); NEUTROPHILS ABSOLUTE AUTO 6.32 K/mm3 (1.96-9.15); NEUTROPHILS PERCENT AUTO 65 % (41-73); Platelet Count 191 K/mm3 (150-400); RDW Coefficient Variation 13.7 % (11.7-14.2); RDW Standard Deviation 48.6 fL (35.1-46.3); White Blood Cell Count 9.72 K/mm3 (4.00-11.30)
[2024-06-14 02:19] LABS: Albumin, Blood 2.5 g/dL (3.4-5.0); Albumin/Globulin Ratio 0.7 (0.8-1.8); Bilirubin, Total 0.6 mg/dL (0.1-1.0); Bun/Creatinine Ratio 19.3 (12.0-20.0); Creatinine, Blood 1.19 mg/dL (0.60-1.20); Globulin, Blood 3.8 g/dL (2.2-4.0); Potassium, Blood 4.2 mmol/L (3.5-5.5); Total Protein, Blood 6.3 g/dL (6.4-8.2)
--- NOTE | 2024-06-14 02:44 | NUR ---
PT SPO2 DROPPED TO 85% ON ROOM AIR WHILE SLEEPING. PT WOKEN UP AND SPO2 RETURNED TO 93% ON ROOM AIR. PT REMAINED AOX4 AND NO C/O SOB OR DIFFICULTY BREATHING.
[2024-06-14] MEDS ORDERED: Clarify Drug Order XX ONE (02:50)
[2024-06-14 04:19] VITALS: BP 91/57
--- NOTE | 2024-06-14 05:04 | NUR ---
CALL PLACED TO DR. MORIN REGARDING PT BRADYCARDIA, ORDERS TO NOT GIVE RATE CONTROL MEDS AND TO CONTINUE MONITORING THE AMIODARONE CONTINUES TO CLEAR. PT IS ASYMPTOMATIC AT THIS TIME. LOWEST HR WAS 49 AND NOT SUSTAINED. PT CURRENT HR 56.
[2024-06-14 07:26] VITALS: BP 111/61
--- NOTE | 2024-06-14 07:50 | NUR ---
ASSUMING CARE BEDSIDE REPORT FROM NOC SHIFT NURSE. ASSUMING CARE AT 0700. PT RESTING IN BED W/ EYES CLOSED BREATHING EVEN AND UNLABORED. CONTINOUS PLUS OX READING 93% ON ROOM AIR. CALL LIGHT IN REACH.
[2024-06-14] MEDS ORDERED: Dose Adjust by Pharmacy XX STA (08:39)
[2024-06-14] MEDS ORDERED: Atorvastatin 10 MG Tab PO SCH (09:00)
[2024-06-14] MEDS ORDERED: Apixaban 5 MG Tab PO SCH (09:00)
--- NOTE | 2024-06-14 09:00 | NUR ---
NURSE NOTE IMAGING AT BEDSIDE. CALL LIGHT IN REACH
[2024-06-14 11:52] VITALS: BP 121/60
[2024-06-14] MEDS ORDERED: Metoprolol Tartrate 25 MG Tab PO SCH (12:00)
[2024-06-14] MEDS ORDERED: Furosemide 20 MG Tab PO SCH (12:00)
[2024-06-14] MEDS ORDERED: ELIQUIS5 M2 PO (14:52)
[2024-06-14] MEDS ORDERED: FURO20 PO (14:52)
[2024-06-14] MEDS ORDERED: METO25ER PO (14:52)
[2024-06-14 16:00] VITALS: BP 135/63
--- NOTE | 2024-06-14 16:29 | NUR ---
VERBAL AND WRITTEN INSTRUCTIONS GIVEN WITH CLEAR UNDERSTANDING. [facility]. AMBULATED FROM UNIT WITH FAMILY IN NO DISTRESS.
== END 2024-06-14 17:12 | disposition home or self-care (01) ==
LOC: ER 13:06 → PCU 13:07
PROVIDERS: Emergency Medicine; Student in an Organized Health Care Education/Training Program; ADMIT Internal Medicine
DX: I48.91 Unspecified atrial fibrillation (principal); I10 Essential (primary) hypertension; E78.5 Hyperlipidemia, unspecified; Z79.82 Long term (current) use of aspirin; Z79.899 Other long term (current) drug therapy
CPT/HCPCS: 36415; 71045; 80053; 83735; 83880; 85025; 85520; 85610; 85730; 93005; 93010; 93306; 96365; 96366; 96375; 96376; 99285-25; A9270; G0378; J0282; J1644; J7030; J7060